=== PATIENT | female | born 1975 | race African-American/Black ===

== ENCOUNTER 2018-06-24 11:20 | Outpatient (CLI) | payer BC ==
--- NOTE | 2018-06-24 14:41 | Mammography Report ---
BILATERAL DIGITAL SCREENING MAMMOGRAM with CAD : 06/24/18 11:20:00 CLINICAL: Routine screening.Previous left benign biopsies. COMPARISON:02/04/16 FINDINGS: The breasts are heterogeneously dense, which may obscure small masses.A left inner posterior biopsy clip and a left upper outer periareolar biopsy clip. No mass, architectural distortion or suspicious calcifications. IMPRESSION: No mammographic evidence of malignancy. BI-RADS CATEGORY: 2 -- Benign RECOMMENDATION: Routine mammographic screening in one year. COMMENT: Patient follow-up letters are generated by our [employer] application.
== END 2018-06-24 11:21 | disposition home or self-care (01) ==
LOC: SPVWC 11:20
PROVIDERS: ATTEND Obstetrics & Gynecology
DX: Z12.31 Encounter for screening mammogram for malignant neoplasm of breast (principal)
CPT/HCPCS: 77067